=== PATIENT | male | born 1995 | race African-American/Black ===

== ENCOUNTER 2025-02-06 07:00 | Emergency (ER) | payer OTHER ==
[~2025-02-06] VITALS: Ht 188 cm; Wt 99.8 kg
[2025-02-06 07:06] VITALS: BP 129/71; TEMP 97.9
[2025-02-06 07:58] LABS: APPEARANCE,URINE CLEAR (CLEAR); BLOOD, URINE NEGATIVE Ery/uL (NEGATIVE); LEUKOCYTE ESTERASE ,URINE NEGATIVE (NEGATIVE); NITRITE, URINE NEGATIVE (NEGATIVE); UGLUCOSE NEGATIVE (NEGATIVE)
[2025-02-06 08:06] VITALS: O2SAT 98
== END 2025-02-06 08:06 | disposition home or self-care (01) ==
LOC: ER 07:10
DX: M54.50 Low back pain, unspecified (principal); E78.5 Hyperlipidemia, unspecified; J45.909 Unspecified asthma, uncomplicated